=== PATIENT | male | born 1950 ===

== ENCOUNTER 2016-07-11 13:22 | Emergency (ER) | payer MEDICAID ==
[2016-07-11 13:22] VITALS: BMI 25.0
[2016-07-11 13:37] VITALS: RESP 16; TEMP 99
--- NOTE | 2016-07-11 14:40 | ED PDOC ---
HPI: Back Time Seen by Provider: 07/11/16 13:50 Chief Complaint (Nursing): Back Pain Chief Complaint (Provider): back pain History Per: Patient History/Exam Limitations: no limitations Additional Complaint(s): 66yo M in ED with hx of HTN for eval of"stiff neck" x 3 days unrelieved with motrin or Tylenol states pain began upon awaking it he morning-unable to fully move neck fully and with slight ARMSTRONG. pt denies: nausea vomiting fever chills abd pain or vision changes. - Risk Factors AAA Risk Factors: Pos: Older Than 49 Years Of Age, Hypertension Neg: Connective Tissue Disease, Marfan's Syndrome, Eli-Danlos Syndrome, Prior AAA, 1st Degree Relative/s With AAA Past Medical History Reviewed: Historical Data, Nursing Documentation, Vital Signs Vital Signs: Last Vital Signs Temp 99.0 F 07/11/16 13:33 Pulse 98 H 07/11/16 13:33 Resp 16 07/11/16 13:33 BP 143/100 H 07/11/16 13:33 Pulse Ox 99 07/11/16 13:33 - Medical History PMH: HTN, Pneumonia, Schizophrenia, Seizures (not on medications) Denies: Chronic Kidney Disease - Family History Family History: States: Hypertension - Home Medications Home Medications: Ambulatory Orders Medication Instructions Recorded Aspirin [Ecotrin] 81 mg PO DAILY 11/26/15 amLODIPine [Norvasc] 10 mg PO DAILY 11/26/15 Brimonidine 0.2% [Alphagan 0.2% 1 drop OU DAILY 11/27/15 Opht] Latanoprost 0.005% Opht [Xalatan 1 drop OU DAILY 11/27/15 Opht] Amoxicillin/Potassium Clav 1 each PO BID #28 tablet 11/30/15 [Augmentin 875-125 Tablet] Ibuprofen 600 mg PO TID #0 tablet 11/30/15 Ibuprofen [Motrin] 400 mg PO Q6 #30 tab 07/11/16 Methocarbamol [Robaxin] 500 mg PO BID #16 tab 07/11/16 - Allergies Allergies/Adverse Reactions: Allergies Allergy/AdvReac Type Severity Reaction Status Date / Time No Known Allergies Allergy Verified 11/26/15 10:01 Review of Systems ROS Statement: Except As Marked, All Systems Reviewed And Found Negative Constitutional: Negative for: Fever, Weakness Musculoskeletal: Positive for: Neck Pain Neurological: Positive for: Headache. Negative for: Dizziness Physical Exam - Reviewed Nursing Documentation Reviewed: Yes Vital Signs Reviewed: Yes - Physical Exam Appears: Positive for: Non-toxic, No Acute Distress, Uncomfortable Head Exam: Positive for: ATRAUMATIC, NORMAL INSPECTION, NORMOCEPHALIC Skin: Positive for: Normal Color, Warm, DRY Eye Exam: Positive for: EOMI, Normal appearance, PERRL Neck: Negative for: Painless ROM (tesha with ROM of neck noted b/l SCM with noted swelling. limited ROM due to stiffness. ) Cardiovascular/Chest: Positive for: Regular Rate, Rhythm Respiratory: Positive for: CNT, Normal Breath Sounds Gastrointestinal/Abdominal: Positive for: Normal Exam, Bowel Sounds, Soft Back: Positive for: Normal Inspection Extremity: Positive for: Normal ROM Neurologic/Psych: Positive for: Alert, Oriented - ECG O2 Sat by Pulse Oximetry: 99 - Progress ED Course And Treament: pt wiill get torodol IM for neck spasm Medical Decision Making Medical Decision Making: Pt with improved symptom advised to use warm compress and given robaxin and motrin for pain control Disposition - Clinical Impression Clinical Impression: Neck pain - Patient ED Disposition Is Patient to be Admitted: No Counseled Patient/Family Regarding: Studies Performed, Diagnosis, Need For Followup, Rx Given - Disposition Disposition: Routine/Home Disposition Time: 15:26 Condition: STABLE Prescriptions: Ibuprofen [Motrin] 400 mg PO Q6 #30 tab Methocarbamol [Robaxin] 500 mg PO BID #16 tab Instructions: Muscle Spasm (ED)
[2016-07-11 15:55] VITALS: BP 126/88; PULSE 90; O2SAT 98
== END 2016-07-11 15:51 | disposition home or self-care (01) ==
LOC: H.ER 13:22
DX: M54.2 Cervicalgia (principal); I10 Essential (primary) hypertension; Z86.59 Personal history of other mental and behavioral disorders

== ENCOUNTER 2017-01-14 13:16 | Emergency (ER) | payer MEDICAID ==
[2017-01-14 13:16] VITALS: BMI 25.0
[2017-01-14 13:28] VITALS: BP 144/73; PULSE 86; RESP 16; TEMP 97.9; O2SAT 99
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
--- NOTE | 2017-01-14 14:40 | RAD ---
PROCEDURE: Right Foot Radiographs. HISTORY: pain COMPARISON: None. FINDINGS: BONES: Three views of the right foot were performed for right foot pain. No fracture is seen. No lytic process is noted. Very mild degenerative changes are seen. No periosteal reaction is noted. Posterior and plantar calcaneal spurs are noted. Subtalar joint is unremarkable. No tarsal bone fracture is seen. JOINTS: Normal. SOFT TISSUES: Minor soft tissue swelling. OTHER FINDINGS: None. IMPRESSION: No fracture. Calcaneal spurs.
== END 2017-01-14 14:39 | disposition home or self-care (01) ==
LOC: H.ER 13:16
DX: M77.31 Calcaneal spur, right foot (principal); I10 Essential (primary) hypertension; Z86.59 Personal history of other mental and behavioral disorders

== ENCOUNTER 2018-05-18 07:11 | Emergency (ER) | payer MEDICARE, MEDICAID ==
[2018-05-18 07:39] VITALS: BMI 22.1
[2018-05-18 07:43] VITALS: RESP 19; O2SAT 98
[2018-05-18] MEDS ORDERED: Sodium Chloride 0.9% 1,000 ML IV STA (07:47)
--- NOTE | 2018-05-18 08:00 | ED PDOC ---
HPI:Nausea, Vomiting, Diarrhea Time Seen by Provider: 05/18/18 07:24 Chief Complaint (Nursing): GI Problem Chief Complaint (Provider): diarrhea History Per: Patient History/Exam Limitations: no limitations Onset/Duration Of Symptoms: Days (x3) Current Symptoms Are (Timing): Still Present Quality Of Discomfort: Burning Associated Symptoms: Nausea, Diarrhea. denies: Fever, Chills, Vomiting, Chest Pain, Urinary Symptoms Additional Complaint(s): Dalton Wilson is a 67 year old male, with a past medical history of HTN, who presents to the emergency department complaining of multiple episodes of diarrhea ongoing for x3 days associated with nausea. Patient reports x3 episodes per day of non bloody watery diarrhea. Patient also reports having an intermittent burning abdominal discomfort but denies having any pain. He denies having any new foods or drinks. He denies any fever, chills, vomiting, abdominal pain, chest pain, shortness of breath, weakness, numbness, tingling, testicular pain, urinary symptoms or recent travel. No further medical complaints. PMD: Kolby Young Past Medical History Reviewed: Historical Data, Nursing Documentation, Vital Signs Vital Signs: Last Vital Signs Temp 97 F L 05/18/18 07:41 Pulse 89 05/18/18 07:41 Resp 19 05/18/18 07:41 BP 109/78 05/18/18 07:41 Pulse Ox 98 05/18/18 07:41 - Medical History PMH: HTN, Pneumonia, Schizophrenia, Seizures (not on medications) Denies: Chronic Kidney Disease - Surgical History Surgical History: No Surg Hx - Family History Family History: States: Hypertension - Social History Current smoker - smoking cessation education provided: No Alcohol: None Drugs: Denies - Home Medications Home Medications: Ambulatory Orders Medication Instructions Recorded Aspirin [Ecotrin] 81 mg PO DAILY 11/26/15 amLODIPine [Norvasc] 10 mg PO DAILY 11/26/15 Brimonidine 0.2% [Alphagan 0.2% 1 drop OU DAILY 11/27/15 Opht] Latanoprost 0.005% Opht [Xalatan 1 drop OU DAILY 11/27/15 Opht] Amoxicillin/Potassium Clav 1 each PO BID #28 tablet 11/30/15 [Augmentin 875-125 Tablet] Ibuprofen 600 mg PO TID #0 tablet 11/30/15 Ibuprofen [Motrin] 400 mg PO Q6 #30 tab 07/11/16 Methocarbamol [Robaxin] 500 mg PO BID #16 tab 07/11/16 Meloxicam [Mobic] 7.5 mg PO DAILY PRN #14 tab 01/14/17 Dicyclomine [Dicyclomine HCl] 10 mg PO DAILY PRN 5 Days cap 05/18/18 - Allergies Allergies/Adverse Reactions: Allergies Allergy/AdvReac Type Severity Reaction Status Date / Time No Known Allergies Allergy Verified 01/24/18 10:59 Review of Systems ROS Statement: Except As Marked, All Systems Reviewed And Found Negative Constitutional: Negative for: Fever, Chills Cardiovascular: Negative for: Chest Pain Respiratory: Negative for: Shortness of Breath Gastrointestinal: Positive for: Nausea, Diarrhea. Negative for: Vomiting, Abdominal Pain Genitourinary Male: Negative for: Dysuria, Frequency, Incontinence, Scrotal Pain Neurological: Negative for: Weakness, Numbness (tingling) Physical Exam - Reviewed Nursing Documentation Reviewed: Yes Vital Signs Reviewed: Yes - Physical Exam Appears: Positive for: No Acute Distress Head Exam: Positive for: ATRAUMATIC, NORMAL INSPECTION, NORMOCEPHALIC Skin: Positive for: Normal Color, Warm, Dry Eye Exam: Positive for: Normal appearance, EOMI, PERRL Neck: Positive for: Normal, Painless ROM Cardiovascular/Chest: Positive for: Regular Rate, Rhythm. Negative for: Murmur Respiratory: Positive for: Normal Breath Sounds. Negative for: Respiratory Distress Gastrointestinal/Abdominal: Positive for: Normal Exam, Soft. Negative for: Tenderness, Distended, Guarding, Rebound Back: Positive for: Normal Inspection. Negative for: L CVA Tenderness, R CVA Tenderness, Vertebral Tenderness Extremity: Positive for: Normal ROM (upper and lower extremities). Negative for: Deformity, Swelling Neurologic/Psych: Positive for: Alert, Oriented. Negative for: Motor/Sensory Deficits - Laboratory Results Result Diagrams: 05/18/18 08:05 05/18/18 08:05 Interpretation Of Abn Labs: 34/1.6 bun/cr and 3.4 k - ECG O2 Sat by Pulse Oximetry: 98 (RA) Pulse Ox Interpretation: Normal - Progress ED Course And Treament: 845: Stable. Feels much better. AAOx3. Pain free. Likely dehydration. No urinary complaints. Has hx of blood pressure and could be causing some renal issues borderline. Pt. to fu with pcp. Tolerated po with no issues. Medical Decision Making Medical Decision Making: Time: 07:24 Initial Impression: Nausea and diarrhea Initial Plan: --CMP --Lipase --CBC w/ differential --Bentyl 10 mg PO --NaCl 1,000 ml IV 1,000 mls/hr --Pepcid 20 mg IVP --Reevaluation Scribe Attestation: Documented by Ezequiel Marcos, acting as a scribe for Yang Colmenares MD Provider Scribe Attestation: All medical record entries made by the Scribe were at my direction and personall y dictated by me. I have reviewed the chart and agree that the record accurately reflects my personal performance of the history, physical exam, medical decision making, and the department course for this patient. I have also personally directed, reviewed, and agree with the discharge instructions and disposition. Disposition - Clinical Impression Clinical Impression: Diarrhea, Renal insufficiency, mild, Dehydration, Hypokalemia - Patient ED Disposition Is Patient to be Admitted: No Counseled Patient/Family Regarding: Studies Performed, Diagnosis, Need For Followup - Disposition [facility]errals: [facility]] - 05/21/18 Disposition: Routine/Home Disposition Time: 08:47 Condition: STABLE Additional Instructions: Return if not better in 3 days. Your kidney functioning is decreased, please follow up with your primary care doctor. Prescriptions: Dicyclomine [Dicyclomine HCl] 10 mg PO DAILY PRN 5 Days cap PRN Reason: Diarrhea Instructions: Hypokalemia, Diarrhea in Adolescents and Adults, Dehydration, Adult (DC)
[2018-05-18 08:22] LABS: BASO # 0.1 K/uL (0.0-0.2); BASO % 0.7 % (0.0-2.0); EOS # 0.1 K/uL (0.0-0.7); EOS % 1.5 % (0.0-4.0); HEMOGLOBIN 16.1 g/dL (12.0-18.0); LYMPH # 1.8 K/uL (1.0-4.3); LYMPH % 20.7 % (20.0-40.0); MEAN CELL VOLUME 88.5 fl (80.0-94.0); MEAN CORPUSCULAR HEMOGLOBIN 29.4 pg (27.0-31.0); MEAN CORPUSCULAR HGB CONC 33.2 g/dL (33.0-37.0); MEAN PLATELET VOLUME 9.2 fl (7.2-11.7); MONO # 0.9 K/uL (0.0-0.8); NEUT # 5.8 K/uL (1.8-7.0); NEUT % 67.1 % (50.0-75.0); NRBC % 0.1 % (0.0-0.0); RBC 5.5 Mil/uL (4.40-5.90); RED CELL DISTRIBUTION WIDTH 13.5 % (11.5-14.5); WHITE BLOOD COUNT 8.7 K/uL (4.8-10.8)
[2018-05-18 08:34] LABS: ALB/GLOB RATIO 1.2 (1.0-2.1); ALBUMIN 4.4 g/dL (3.5-5.0); CALCIUM 9.5 mg/dL (8.4-10.2)
[2018-05-18] MEDS ORDERED: Potassium Chloride 20 mEq ER Tab PO STA (08:43)
[2018-05-18] MEDS ORDERED: Potassium Chloride 20 mEq ER Tab PO ONE (08:57)
[2018-05-18 09:02] VITALS: BP 128/76; PULSE 78; TEMP 97.6
== END 2018-05-18 09:03 | disposition home or self-care (01) ==
LOC: H.ER 07:11
DX: R19.7 Diarrhea, unspecified (principal); E86.0 Dehydration; E87.6 Hypokalemia; N18.9 Chronic kidney disease, unspecified
CPT/HCPCS: 80053; 83690; 85025; 96374; 99283; J7030

== ENCOUNTER 2018-08-12 20:05 | Emergency (ER) | payer MEDICARE, MEDICAID ==
[2018-08-12 20:12] VITALS: RESP 18; O2SAT 99; BMI 23.0
--- NOTE | 2018-08-12 20:48 | ED PDOC ---
HPI: General Adult Time Seen by Provider: 08/12/18 20:34 Chief Complaint (Nursing): ENT Problem History Per: Patient Additional Complaint(s): Pt. states on he woke up with a burning, itching rash on his neck and upper chest. Also reports prior to that he had a sore throat. Denies chest pain, SOB, fever, chills, cough, congestion. Past Medical History Reviewed: Historical Data, Nursing Documentation, Vital Signs Vital Signs: Last Vital Signs Temp 97.8 F 08/12/18 20:31 Pulse 94 H 08/12/18 20:31 Resp 18 08/12/18 20:31 BP 126/90 08/12/18 20:31 Pulse Ox 99 08/12/18 20:31 Primary Care Provider: Kolby Young - Medical History PMH: HTN, Pneumonia, Schizophrenia, Seizures (not on medications) Denies: Chronic Kidney Disease - Family History Family History: States: No Known Family Hx, Hypertension - Immunization History Hx Tetanus Toxoid Vaccination: No Hx Influenza Vaccination: No Hx Pneumococcal Vaccination: No - Home Medications Home Medications: Ambulatory Orders Medication Instructions Recorded Aspirin [Ecotrin] 81 mg PO DAILY 11/26/15 amLODIPine [Norvasc] 10 mg PO DAILY 11/26/15 Brimonidine 0.2% [Alphagan 0.2% 1 drop OU DAILY 11/27/15 Opht] Latanoprost 0.005% Opht [Xalatan 1 drop OU DAILY 11/27/15 Opht] Amoxicillin/Potassium Clav 1 each PO BID #28 tablet 11/30/15 [Augmentin 875-125 Tablet] Ibuprofen 600 mg PO TID #0 tablet 11/30/15 Ibuprofen [Motrin] 400 mg PO Q6 #30 tab 07/11/16 Methocarbamol [Robaxin] 500 mg PO BID #16 tab 07/11/16 Meloxicam [Mobic] 7.5 mg PO DAILY PRN #14 tab 01/14/17 Dicyclomine [Dicyclomine HCl] 10 mg PO DAILY PRN 5 Days cap 05/18/18 valACYclovir [Valtrex] 1 gm PO Q8H #21 tab 08/12/18 - Allergies Allergies/Adverse Reactions: Allergies Allergy/AdvReac Type Severity Reaction Status Date / Time No Known Allergies Allergy Verified 01/24/18 10:59 Review of Systems ROS Statement: Except As Marked, All Systems Reviewed And Found Negative ENT: Positive for: Throat Pain Skin: Positive for: Rash Physical Exam - Physical Exam Appears: Positive for: Well, Non-toxic, No Acute Distress Skin: Positive for: Normal Color, Warm, Rash (scattered vesicles on erythematous base R side of neck, R side of upper chest, and R side shoulder that does not cross the mid-line; no crusitng or discharge noted) ENT: Positive for: TM Is/Are (non-erythematous, non-bulging b/l), Pharyngeal Erythema. Negative for: Nasal Congestion, Tonsillar Exudate, Tonsillar Swelling Neck: Positive for: Painless ROM, Supple Cardiovascular/Chest: Positive for: Regular Rate, Rhythm Respiratory: Positive for: Normal Breath Sounds. Negative for: Respiratory Distress Gastrointestinal/Abdominal: Positive for: Soft. Negative for: Tenderness Back: Negative for: L CVA Tenderness, R CVA Tenderness Neurological/Psych: Positive for: Awake, Alert, Oriented (x3) - ECG O2 Sat by Pulse Oximetry: 99 - Progress ED Course And Treament: Rapid strep: negative. Disposition - Clinical Impression Clinical Impression: Shingles, Pharyngitis - Patient ED Disposition Is Patient to be Admitted: No - Disposition Referrals: [facility] [Outside] Disposition: Routine/Home Disposition Time: 21:27 Condition: STABLE Additional Instructions: ADALBERTO LIU, thank you for letting us take care of you today. Your provider was Mitch Arroyo MD and you were treated for POSS RASH, THROAT PAIN. The emergency medical care you received today was directed at your acute symptoms. If you were prescribed any medication, please fill it and take as directed. It may take several days for your symptoms to resolve. Return to the Emergency Department if your symptoms worsen, do not improve, or if you have any other problems. Please contact your doctor or call one of the physicians/clinics you have been referred to that are listed on the Patient Visit Information form that is included in your discharge packet. Bring any paperwork you were given at discharge with you along with any medications you are taking to your follow up visit. Our treatment cannot replace ongoing medical care by a primary care provider outside of the emergency department. Thank you for allowing the [facility] [employer] team to be part of your care today. If you had an X-Ray or CT scan: A Radiologist will review the ED reading if any change in treatment is needed we will contact you. If you had a blood, urine, or wound culture: It will take several days for the results, if any change in treatment is needed we will contact you. If you had an STI test: It will take 48 hours for the results. Please call after 1 week if you have not heard back. Prescriptions: valACYclovir [Valtrex] 1 gm PO Q8H #21 tab Instructions: Shingles (DC), Viral Pharyngitis (DC) Forms: [employer] (B[place]an)
[2018-08-12 22:07] VITALS: BP 118/81; PULSE 90; TEMP 97.9
== END 2018-08-12 21:30 | disposition home or self-care (01) ==
LOC: H.ER 20:05
DX: B02.9 Zoster without complications (principal); J02.9 Acute pharyngitis, unspecified; I10 Essential (primary) hypertension; Z86.59 Personal history of other mental and behavioral disorders